=== PATIENT | female | born 1960 | race Caucasian/White ===

== ENCOUNTER 2016-12-01 07:37 | Outpatient (CLI) | payer BC | END 2016-12-01 20:13 | disposition home or self-care (01) | LOC: SMA 07:37 | PROVIDERS: ATTEND Specialist | DX: Z12.31 Encounter for screening mammogram for malignant neoplasm of breast (principal) | CPT/HCPCS: 77067; G0202 ==

== ENCOUNTER 2017-12-05 09:58 | Outpatient (CLI) | payer BC | END 2017-12-05 19:57 | disposition home or self-care (01) | LOC: SMA 09:58 | PROVIDERS: ATTEND Specialist | DX: Z12.31 Encounter for screening mammogram for malignant neoplasm of breast (principal) | CPT/HCPCS: 77067 ==

== ENCOUNTER 2018-12-06 08:07 | Outpatient (CLI) | payer BC | END 2018-12-06 21:10 | disposition home or self-care (01) | LOC: SMA 08:07 | PROVIDERS: ATTEND Specialist | DX: Z12.31 Encounter for screening mammogram for malignant neoplasm of breast (principal) | CPT/HCPCS: 77067 ==

== ENCOUNTER 2020-03-03 08:00 | Outpatient (CLI) | payer BC | END 2020-03-03 21:07 | disposition home or self-care (01) | LOC: SMA 08:00 | PROVIDERS: ATTEND Specialist | DX: Z12.31 Encounter for screening mammogram for malignant neoplasm of breast (principal) | CPT/HCPCS: 77067 ==

== ENCOUNTER 2021-03-11 08:59 | Outpatient (CLI) | payer BC | END 2021-03-11 20:28 | disposition home or self-care (01) | LOC: SMA 08:59 | PROVIDERS: ATTEND Specialist | DX: Z12.31 Encounter for screening mammogram for malignant neoplasm of breast (principal); N64.89 Other specified disorders of breast | CPT/HCPCS: 77067 ==